=== PATIENT | male | born 1965 | race Two or more races ===

== ENCOUNTER 2021-12-12 12:27 | Day surgery (SDC) | payer OTHER ==
[2021-12-12 13:33] LABS: Basophils # (A) 0.1 k/uL (0-0.2); Basophils % (A) 1 %; Eosinophils # (A) 0.3 k/uL (0-0.7); Eosinophils % (A) 3 %; HCT 39.9 % (39.0-53.0); HGB 12.4 gm/dL (13.0-17.5); Lymphocytes # (A) 1.6 k/uL (1.0-4.8); Lymphocytes % (A) 16 %; MCH 27.7 pg (25.0-35.0); MCV 89.2 fL (80.0-100.0); Mean Platelet Volume 7.8; Monocytes # (A) 0.5 k/uL (0-1.0); Monocytes % (A) 5 %; Neutrophils # (A) 7.6 k/uL (1.3-7.7); Neutrophils % (A) 75 %; Platelet Count 454 k/uL (150-450); RBC 4.48 m/uL (4.30-5.90); RDW 14.3 % (11.5-15.5); WBC 10.2 k/uL (3.8-10.6)
[2021-12-12 13:36] VITALS: TEMP 98.3
[2021-12-12 13:36] LABS: ALT 21 U/L (4-49); AST 56 U/L (17-59); African American GFR (CKD) >90 (>60 ml/min/1.73 sqM); Albumin 2.2 g/dL (3.5-5.0); Alkaline Phosphatase 197 U/L (38-126); Anion Gap 0 mmol/L; Blood Urea Nitrogen 15 mg/dL (9-20); Carbon Dioxide 28 mmol/L (22-30); Chloride 101 mmol/L (98-107); Glucose 101 mg/dL (74-99); Non-African American GFR(CKD) >90 (>60 ml/min/1.73 sqM); Potassium 4.5 mmol/L (3.5-5.1); Sodium 129 mmol/L (137-145); Total Bilirubin 0.4 mg/dL (0.2-1.3); Total Protein 5.5 g/dL (6.3-8.2)
[2021-12-12 13:38] LABS: INR 1.1 (<1.2); Prothrombin Time 12.1 sec (9.0-12.0)
[2021-12-12] MEDS: ALBUMIN HUMAN 25% 50 ML in EMPTY BAG 1 BAG IVPB SCH ×4 (14:11→15:00)
[2021-12-12 15:06] VITALS: RESP 18
[2021-12-12 15:50] VITALS: PULSE 75
[2021-12-12 16:03] VITALS: BP 97/65
--- NOTE | 2021-12-12 16:07 | US ---
EXAMINATION TYPE: US paracentesis abd w/image DATE OF EXAM: 12/12/2021 COMPARISON: NONE HISTORY: Ascites. PROCEDURE: Maximal barrier technique was utilized. The skin overlying a suitable pocket of fluid was localized with ultrasound and the overlying skin was prepped and draped. Ultrasound was utilized with sterile technique. Lidocaine was used for local anesthesia and a skin jamila made with a scalpel. Catheter was advanced under direct ultrasound guidance into a suitable pocket of fluid and approximately 11.7 lite rs of ascites fluid were removed. Catheter was withdrawn and hemostasis achieved. There is no immed iate complication; the patient is discharged in stable condition. IMPRESSION: STATUS POST ULTRASOUND GUIDED PARACENTESIS FOR PALLIATION OF ASCITES. THIS PROCEDURE WA S PERFORMED BY THE UNDERSIGNED.
== END 2021-12-12 16:04 | disposition home or self-care (01) ==
LOC: RADPROMAIN 12:27
PROVIDERS: ATTEND Internal Medicine Gastroenterology
DX: K70.31 Alcoholic cirrhosis of liver with ascites (principal); F10.10 Alcohol abuse, uncomplicated; Y90.9 Presence of alcohol in blood, level not specified; R16.0 Hepatomegaly, not elsewhere classified; Z79.899 Other long term (current) drug therapy
CPT/HCPCS: 80053; 85025; 85610; 36415; 49083; P9047

== ENCOUNTER 2021-12-19 13:07 | Day surgery (SDC) | payer OTHER ==
[~2021-12-19 13:07] MED LIST: ALBUMIN HUMAN 25% 50 ML in EMPTY BAG 1 BAG IVPB SCH
[2021-12-19 13:50] LABS: Mean Platelet Volume 7.9; Platelet Count 355 k/uL (150-450)
[2021-12-19 13:59] LABS: INR 1.1 (<1.2); Prothrombin Time 11.4 sec (9.0-12.0)
[2021-12-19 14:05] LABS: African American GFR (CKD) >90 (>60 ml/min/1.73 sqM); Non-African American GFR(CKD) >90 (>60 ml/min/1.73 sqM)
[2021-12-19] MEDS: ALBUMIN HUMAN 25% 50 ML in EMPTY BAG 1 BAG IVPB SCH ×4 (14:41→15:43)
[2021-12-19 15:07] VITALS: RESP 16; TEMP 97.7
[2021-12-19 15:39] VITALS: BP 101/54; PULSE 62
--- NOTE | 2021-12-19 16:06 | US ---
Ultrasound-guided paracentesis. DATE OF EXAM: 12/19/2021 CLINICAL HISTORY: Ascites The procedure was discussed with the patient. The risks, complications, benefits, and alternatives we re discussed and any questions were answered. Informed consent was obtained. The patient was placed s upine on the ultrasound table and prepped and draped in the usual sterile fashion. All elements of maximal barrier technique were utilized. Under ultrasound guidance, access into the right lower quadrant was obtained, via the paracentesis catheter system and direct ultrasound guidanc e. Approximately 5.9 liters of straw-colored fluid was removed. The patient was stable throughout the pr ocedure and remained stable upon discharge from Department of Radiology. IMPRESSION: Successful paracentesis under ultrasound guidance.
== END 2021-12-19 15:40 | disposition home or self-care (01) ==
LOC: RADPROMAIN 13:07
PROVIDERS: ATTEND Internal Medicine Gastroenterology
DX: R18.8 Other ascites (principal)
CPT/HCPCS: 82565; 85049; 85610; 36415; 49083; P9047

== ENCOUNTER 2021-12-26 08:02 | Day surgery (SDC) | payer OTHER ==
[2021-12-26 08:34] LABS: Mean Platelet Volume 7.4; Platelet Count 358 k/uL (150-450)
[2021-12-26 08:40] LABS: INR 1.1 (<1.2); Prothrombin Time 11.8 sec (9.0-12.0)
[2021-12-26 08:41] VITALS: BP 98/65; PULSE 90; RESP 18; TEMP 97.8
[2021-12-26 08:43] LABS: African American GFR (CKD) >90 (>60 ml/min/1.73 sqM); Non-African American GFR(CKD) >90 (>60 ml/min/1.73 sqM)
--- NOTE | 2021-12-26 09:25 | US ---
Ultrasound-guided paracentesis. DATE OF EXAM: 12/26/2021 CLINICAL HISTORY: Ascites Preliminary imaging demonstrated only a very small amount of fluid. Procedure discussed with patient. Procedure was deferred. IMPRESSION: 1. Deferred paracentesis due to small amount of fluid.
[2021-12-26] MEDS: ALBUMIN HUMAN 25% 50 ML in EMPTY BAG 1 BAG IVPB SCH ×3 (12:00→12:02)
== END 2021-12-26 09:30 | disposition home or self-care (01) ==
LOC: RADPROMAIN 08:02
PROVIDERS: ATTEND Internal Medicine Gastroenterology
DX: R18.8 Other ascites (principal)
CPT/HCPCS: 36415; 76705; 82565; 85049; 85610

== ENCOUNTER 2022-01-09 12:43 | Day surgery (SDC) | payer OTHER ==
[2022-01-09 13:02] VITALS: BP 97/65; PULSE 85; RESP 16; TEMP 98.1
--- NOTE | 2022-01-09 15:59 | US ---
Ultrasound-guided paracentesis. DATE OF EXAM: 01/09/2022 CLINICAL HISTORY: Ascites The procedure was discussed with the patient. The risks, complications, benefits, and alternatives we re discussed and any questions were answered. Informed consent was obtained. The patient was placed s upine on the ultrasound table and prepped and draped in the usual sterile fashion. All elements of maximal barrier technique were utilized. Under ultrasound guidance, access into the right lower quadrant was obtained, via the paracentesis catheter system and direct ultrasound guidanc e. Approximately 9 liters of straw-colored fluid was removed. The patient was stable throughout the proc edure and remained stable upon discharge from Department of Radiology. IMPRESSION: Successful paracentesis under ultrasound guidance.
== END 2022-01-09 13:45 | disposition home or self-care (01) ==
LOC: RADPROMAIN 12:43
PROVIDERS: ATTEND Internal Medicine Gastroenterology
DX: R18.8 Other ascites (principal)
CPT/HCPCS: 49083

== ENCOUNTER 2022-03-13 07:45 | Inpatient (IN) | payer OTHER ==
[2022-05-18 13:05] LABS: Anisocytosis Slight; Basophils # (A) 0.1 k/uL (0-0.2); Basophils % (A) 1 %; Eosinophils # (A) 0.2 k/uL (0-0.7); Eosinophils % (A) 3 %; HCT 27.4 % (39.0-53.0); Hypochromasia Marked; Lymphocytes # (A) 1.5 k/uL (1.0-4.8); Lymphocytes % (A) 17 %; MCH 22.9 pg (25.0-35.0); MCHC 29.4 g/dL (31.0-37.0); Mean Platelet Volume 8.8; Microcytosis Slight; Monocytes # (A) 0.7 k/uL (0-1.0); Monocytes % (A) 8 %; Neutrophils # (A) 6.1 k/uL (1.3-7.7); Neutrophils % (A) 70 %; Partial Thromboplastin Time 25.7 sec (22.0-30.0); Platelet Count 329 k/uL (150-450); Prothrombin Time 10.3 sec (9.0-12.0); RBC 3.51 m/uL (4.30-5.90); RDW 17.3 % (11.5-15.5); WBC 8.7 k/uL (3.8-10.6)
[2022-05-18 13:13] LABS: Albumin 3.8 g/dL (3.5-5.0)
[2022-05-21] MEDS ORDERED: ACETAMINOPHEN TAB 500 MG TAB PO PRN (05:00)
[2022-05-21] MEDS ORDERED: metroNIDAZOLE-NS PMX 500 MG in SALINE 1 100ML.BAG IVPB PRN (05:00)
[2022-05-21] MEDS ORDERED: HEPARIN SODIUM,PORCINE/PF 5,000 UNIT/0.5 ML SYRINGE SQ PRN (05:00)
[2022-05-21] MEDS ORDERED: MIDAZOLAM 2 MG/2 ML VIAL IV PRN (06:15)
[2022-05-21] MEDS ORDERED: ONDANSETRON 4 MG/2 ML VIAL IVP ONE (06:15)
[2022-05-21] MEDS ORDERED: DEXAMETHASONE SOD PHOSPHATE 4 MG/ML 1 ML VIAL IV ONE (06:15)
[2022-05-21] MEDS ORDERED: SCOPOLAMINE 1 MG/72 HR PATCH TRANSDERM ONE (06:15)
[2022-05-21] MEDS ORDERED: HYDROmorphone 0.5 MG/0.5 ML SYRINGE IVP PRN (07:00)
[2022-05-21] MEDS: LACTATED RINGERS 1,000 ML IV SCH (09:17)
[2022-05-21] MEDS ORDERED: MIDAZOLAM 2 MG/2 ML VIAL IVP ONE (10:07)
[2022-05-21] MEDS ORDERED: NALOXONE 0.4 MG/ML 1 ML VIAL IV PRN (10:31)
--- NOTE | 2022-05-21 10:34 | P.ANPRN ---
Procedure Note - Anesthesia - Epidural/Spinal Epidural Continuous Time Out Performed: Yes Date of Procedure: 05/21/22 Procedure Start Time: 10:07 Procedure Stop Time: 10:14 Location of Patient: PreOp Indication: Requested by Surgeon Sedation Type: Sedate with meaningful contact maintained Preparation: Sterile Prep Position: Sitting Catheter: Indwelling Needle Guage: 18 Blood Aspirated: No Pain Paresthesia on Injection Noted: No Events: Uneventful and Well Tolerated
[2022-05-21] MEDS ORDERED: LACTATED RINGERS 1,000 ML IV ONE ×2 (11:10→13:23)
[2022-05-21] MEDS ORDERED: NEOSTIGMINE 1 MG/ML 10 ML VIAL ONE (11:34)
[2022-05-21] MEDS ORDERED: GLYCOPYRROLATE 0.2 MG/ML 2 ML VIAL ONE (11:34)
[2022-05-21] MEDS ORDERED: ROCURONIUM 10 MG/ML (5 ML VIAL) IV ONE (11:34)
[2022-05-21] MEDS ORDERED: ESMOLOL 100 MG/10 ML VIAL ONE (11:34)
[2022-05-21] MEDS ORDERED: MIDAZOLAM 2 MG/2 ML VIAL ONE (11:34)
[2022-05-21] MEDS ORDERED: SUCCINYLCHOLINE CHLORIDE 200 MG/10 ML VIAL IV ONE (11:34)
[2022-05-21] MEDS ORDERED: PROPOFOL 10 MG/ML 20 ML VIAL IV ONE (11:34)
[2022-05-21] MEDS ORDERED: LIDOCAINE 2% INJ 20 MG/ML (2 ML VIAL) ONE (11:34)
[2022-05-21] MEDS ORDERED: fentaNYL (PF) 50 MCG/ML 2 ML AMP ONE (11:34)
[2022-05-21] MEDS: ROPIVACAINE 250 MG, HYDROMORPHONE (PF) 5 MG in SODIUM CHLORIDE 0.9% 200 ML EPIDURAL PRN ×2 (13:33→14:09)
[2022-05-21] MEDS ORDERED: BENZOCAINE/MENTHOL LOZENG 1 EACH LOZENGE MUCOUS MEM PRN (14:01)
[2022-05-21] MEDS ORDERED: ONDANSETRON 4 MG/2 ML VIAL IVP PRN (14:01)
[2022-05-21] MEDS ORDERED: METOCLOPRAMIDE 5 MG/ML 2 ML VIAL IVP PRN (14:01)
[2022-05-21 14:48] LABS: Anisocytosis Slight; Basophils % (A) 0 %; Eosinophils # (A) 0.1 k/uL (0-0.7); Eosinophils % (A) 1 %; HCT 27.9 % (39.0-53.0); HGB 8.4 gm/dL (13.0-17.5); Hypochromasia Marked; Lymphocytes # (A) 0.5 k/uL (1.0-4.8); Lymphocytes % (A) 6 %; MCHC 30.2 g/dL (31.0-37.0); MCV 79.4 fL (80.0-100.0); Mean Platelet Volume 7.7; Microcytosis Slight; Monocytes # (A) 0.2 k/uL (0-1.0); Monocytes % (A) 2 %; Neutrophils # (A) 7.2 k/uL (1.3-7.7); Neutrophils % (A) 90 %; Platelet Count 343 k/uL (150-450); Poikilocytosis Slight; RBC 3.51 m/uL (4.30-5.90)
[2022-05-21 15:01] LABS: African American GFR (CKD) >90 (>60 ml/min/1.73 sqM); Anion Gap 7 mmol/L; Blood Urea Nitrogen 14 mg/dL (9-20); Calcium 8.3 mg/dL (8.4-10.2); Carbon Dioxide 20 mmol/L (22-30); Chloride 108 mmol/L (98-107); Glucose 122 mg/dL (74-99); Non-African American GFR(CKD) 87 (>60 ml/min/1.73 sqM); Potassium 5.6 mmol/L (3.5-5.1); Sodium 135 mmol/L (137-145)
[2022-05-21] MEDS: D5-0.45% NACL WITH KCL 20MEQ/L 1,000 ML IV SCH (16:38)
[2022-05-21] MEDS: HEPARIN SODIUM,PORCINE/PF 5,000 UNIT/0.5 ML SYRINGE SQ SCH ×2 (17:58→23:29)
[2022-05-21] MEDS: FAMOTIDINE 20 MG/2 ML VIAL IV SCH (20:51)
[2022-05-22 08:37] LABS: Anisocytosis Slight; HCT 22.2 % (39.0-53.0); Hypochromasia Marked; MCH 23.9 pg (25.0-35.0); MCHC 30.4 g/dL (31.0-37.0); MCV 78.5 fL (80.0-100.0); Mean Platelet Volume 7.8; Microcytosis Slight; Platelet Count 268 k/uL (150-450); Poikilocytosis Slight; RBC 2.82 m/uL (4.30-5.90); WBC 10.6 k/uL (3.8-10.6)
[2022-05-22] MEDS: LACTATED RINGERS 1,000 ML IV SCH (08:44)
[2022-05-22 08:47] LABS: HGB 6.7 gm/dL (13.0-17.5)
[2022-05-22] MEDS: ALVIMOPAN 12 MG CAPSULE PO SCH ×2 (08:50→20:31)
[2022-05-22] MEDS: HEPARIN SODIUM,PORCINE/PF 5,000 UNIT/0.5 ML SYRINGE SQ SCH ×2 (08:50→15:25)
[2022-05-22] MEDS: FAMOTIDINE 20 MG/2 ML VIAL IV SCH ×2 (08:55→20:31)
[2022-05-22] MEDS: DEXTROSE 5%-0.45% NACL 1,000 ML IV SCH ×3 (08:56→20:31)
[2022-05-22 08:58] LABS: African American GFR (CKD) 77 (>60 ml/min/1.73 sqM); Anion Gap 2 mmol/L; Blood Urea Nitrogen 17 mg/dL (9-20); Carbon Dioxide 25 mmol/L (22-30); Chloride 104 mmol/L (98-107); Glucose 98 mg/dL (74-99); Non-African American GFR(CKD) 67 (>60 ml/min/1.73 sqM); Sodium 131 mmol/L (137-145)
[2022-05-22 09:09] LABS: Potassium 6.2 mmol/L (3.5-5.1)
--- NOTE | 2022-05-22 09:39 | P.PN ---
Progress Note - Text Progress Note Date: 05/22/22 Patient evaluated at 656 am. He is POD #1 subtotal colectomy with an epidural infusing for post-operative pain management. Patient has not yet been out of bed but states a VAS of 1-2/10 which increases with reaching for bedside table. Epidural infusing, site clean/dry, no complaint of back pain and patient is afebrile. Will follow up as indicated.
[2022-05-22] MEDS ORDERED: INSULIN REGULAR 100 UNIT/ML VIAL (IM/SQ) SQ ONE (11:32)
[2022-05-22] MEDS ORDERED: DEXTROSE 50% SYRINGE 50 ML IVP STA (11:33)
[2022-05-22] MEDS ORDERED: INSULIN REGULAR 100 UNIT/ML VIAL (IV) IV ONE (11:38)
[2022-05-22] MEDS: D5-0.45% NACL WITH KCL 20MEQ/L 1,000 ML IV SCH (11:42)
--- NOTE | 2022-05-22 14:29 | P.PN ---
Subjective Progress Note Date: 05/22/22 CHIEF COMPLAINT: Colon polyps HISTORY OF PRESENT ILLNESS: Patient is postop day #1 status post subtotal c olectomy, partial omentectomy, small bowel resection and excision of Meckel's. Patient has epidural for pain. Pain is controlled. Denies any nausea or vomiting. Denies any bowel activity. Hemoglobin did drop from 8.4-6.7. Unit of blood has been ordered. He did receive a unit of blood postoperatively for hemoglobin of 8. Patient has had hyperkalemia potassium 5.6. Afebrile. WBC 10.6 H36.7 plan is to 68 sounds 1 and potassium 6.2 creatinine 1.20 Patient seen and examined with Dr. dias PHYSICAL EXAM: VITAL SIGNS: Reviewed. GENERAL: Well-developed in no acute distress. HEENT: No sclera icterus. Extraocular movements grossly intact. Moist buccal mucosa. Head is atraumatic, normocephalic. ABDOMEN: Soft. Nondistended. Tenderness at incision site. Prevana wound vac dressing in place NEUROLOGIC: Alert and oriented. Cranial nerves II through XII grossly intact. ASSESSMENT: 1. Colon polyps status post subtotal colectomy, partial omentectomy, small bowel resection and excision of Meckel's. 2. Hyperkalemia 3. Anemia PLAN: -1 unit of packed red blood cells ordered for hemoglobin of 6.7 -Insulin and glucose ordered to correct the hyperkalemia -Continue epidural for pain control -Continue incentive spirometer -Encouraged patient to increase activity level -Repeat labs in a.m. -GI prophylaxis Pepcid and DVT prophylaxis subcu heparin Physician Fifth Hand note has been reviewed by physician. Signing provider agrees with the documented findings, assessment, and plan of care. Objective - Vital Signs Vital signs: Vital Signs Temp 98.3 F 05/22/22 14:07 Pulse 87 05/22/22 14:07 Resp 17 05/22/22 14:07 BP 111/65 05/22/22 14:07 Pulse Ox 93 L 05/22/22 14:07 FiO2 Intake & Output 05/21/22 05/22/22 05/22/22 18:59 06:59 18:59 Intake Total 3609 0 Output Total 850 400 Balance 2759 -400 Weight 84.7 kg Intake: IV 3299 Oral 0 Blood Product 310 0 Unit 0 Rc As-1 Unit 310 [id number] Output: Urine 600 400 Estimated Blood Loss 250 Other: Voiding Method Indwelling Catheter Indwelling Catheter Indwelling Catheter - Labs CBC & Chem 7: 05/22/22 08:06 05/22/22 08:06 Labs: Abnormal Lab Results - Last 24 Hours (Table) 05/18/22 05/21/22 05/21/22 Range/Units 11:48 14:21 14:21 RBC 3.51 L (4.30-5.90) m/uL Hgb 8.4 L (13.0-17.5) gm/dL Hct 27.9 L (39.0-53.0) % MCV 79.4 L (80.0-100.0) fL MCH 24.0 L (25.0-35.0) pg MCHC 30.2 L (31.0-37.0) g/dL RDW 17.0 H (11.5-15.5) % Lymphocytes # 0.5 L (1.0-4.8) k/uL Sodium 135 L (137-145) mmol/L Potassium 5.6 H (3.5-5.1) mmol/L Chloride 108 H (98-107) mmol/L Carbon Dioxide 20 L (22-30) mmol/L Glucose 122 H (74-99) mg/dL Calcium 8.3 L (8.4-10.2) mg/dL Crossmatch See Detail 05/22/22 05/22/22 Range/Units 08:06 08:06 RBC 2.82 L (4.30-5.90) m/uL Hgb 6.7 L* D (13.0-17.5) gm/dL Hct 22.2 L (39.0-53.0) % MCV 78.5 L (80.0-100.0) fL MCH 23.9 L (25.0-35.0) pg MCHC 30.4 L (31.0-37.0) g/dL RDW 17.0 H (11.5-15.5) % Lymphocytes # (1.0-4.8) k/uL Sodium 131 L (137-145) mmol/L Potassium 6.2 H* (3.5-5.1) mmol/L Chloride (98-107) mmol/L Carbon Dioxide (22-30) mmol/L Glucose (74-99) mg/dL Calcium 8.0 L (8.4-10.2) mg/dL Crossmatch
[2022-05-22] MEDS: ROPIVACAINE 250 MG, HYDROMORPHONE (PF) 5 MG in SODIUM CHLORIDE 0.9% 200 ML EPIDURAL PRN (14:57)
[2022-05-23] MEDS: HEPARIN SODIUM,PORCINE/PF 5,000 UNIT/0.5 ML SYRINGE SQ SCH ×3 (00:06→17:24)
[2022-05-23] MEDS: LACTATED RINGERS 1,000 ML IV SCH (00:09)
[2022-05-23] MEDS: DEXTROSE 5%-0.45% NACL 1,000 ML IV SCH ×2 (05:31→14:42)
--- NOTE | 2022-05-23 07:04 | P.PN ---
Progress Note - Text Progress Note Date: 05/23/22 Postoperative day #2 status post subtotal colectomy epidural catheter placed for postoperative analgesia, patient doing well epidural site okay, patient currently on combination of epidural infusion solution of Ropivacaine 0.0625% and Dilaudid 20 g per mL the infusion rate at 8 ml per hour , patient had no motor deficit epidural site okay , vital signs stable ,VAS 2-3 /10 , Assessment and plan= post operative day #2 patient doing well ,pain well controlled , there is no anesthesia related complications
[2022-05-23] MEDS: ALVIMOPAN 12 MG CAPSULE PO SCH ×2 (09:36→21:30)
[2022-05-23] MEDS: FAMOTIDINE 20 MG/2 ML VIAL IV SCH ×2 (09:36→21:30)
[2022-05-23 10:17] LABS: HCT 26.9 % (39.6-50.0); HGB 7.7 g/dL (13.0-17.0); MCH 22.9 pg (27.0-32.0); MCHC 28.6 g/dL (32.0-37.0); MCV 80.1 fL (80.0-97.0); Mean Platelet Volume 10.9 fL (9.5-12.2); NRBC Per 100 WBC 0.1 /100 WBCS (0.0-0.0); Platelet Count 353 X 10*3/uL (140-440); RBC 3.36 X 10*6/uL (4.40-5.60); RDW 18.1 % (11.5-14.5); WBC 15.84 X 10*3/uL (4.50-10.00)
[2022-05-23 10:46] LABS: African American GFR (CKD) 77.3 (60.0-200.0); Anion Gap 9.1 mmol/L (10.00-18.00); BUN/Creat Ratio 10.5 Ratio (12.00-20.00); Blood Urea Nitrogen 12.6 mg/dL (9.0-27.0); Carbon Dioxide 24.9 mmol/L (20.0-27.5); Non-African American GFR(CKD) 66.7 (60.0-200.0)
[2022-05-23] MEDS: FUROSEMIDE 40 MG TAB PO SCH ×2 (12:13→21:31)
[2022-05-23] MEDS: SPIRONOLACTONE 25 MG TAB PO SCH ×2 (12:13→21:31)
--- NOTE | 2022-05-23 12:29 | P.PN ---
Subjective Progress Note Date: 05/23/22 CHIEF COMPLAINT: Colon polyps HISTORY OF PRESENT ILLNESS: Patient is postop day #2 status post subtotal c olectomy, partial omentectomy, small bowel resection and excision of Meckel's. Patient has epidural for pain. Pain is controlled. Patient did have one episode of vomiting. Patient is requesting his water pills. He has a known history of liver cirrhosis. He feels his abdomen is more distended. Denies any bowel movement or flatus. Afebrile. Heart rate 101 blood pressure 113/65 room air and 90% WBC is up 15.84. Hemoglobin 6.7 up to 7.7 after 1 unit of blood and platelets 353 sodium is 127 potassium improved from 6.2-5 creatinine 1.2 Patient seen and examined with Dr. dias PHYSICAL EXAM: VITAL SIGNS: Reviewed. GENERAL: Well-developed in no acute distress. HEENT: No sclera icterus. Extraocular movements grossly intact. Moist buccal mucosa. Head is atraumatic, normocephalic. ABDOMEN: Soft. Distended Tenderness at incision site. Prevana wound vac dressing in place NEUROLOGIC: Alert and oriented. Cranial nerves II through XII grossly intact. ASSESSMENT: 1. Colon polyps status post subtotal colectomy, partial omentectomy, small bowel resection and excision of Meckel's. 2. Hyperkalemia improved 3. Anemia 4. Hyponatremia PLAN: -History of liver cirrhosis we'll resume patient's Lasix and Aldactone -Medical service has been consulted -Continue clear liquid diet -Continue epidural for pain management -Continue incentive spirometer -Encouraged patient to increase activity level -Repeat labs in a.m. -GI prophylaxis Pepcid and DVT prophylaxis subcu heparin Physician Fibre Composite Technician note has been reviewed by physician. Signing provider agrees with the documented findings, assessment, and plan of care. Objective - Vital Signs Vital signs: Vital Signs Temp 97.3 F L 05/23/22 07:46 Pulse 101 H 05/23/22 07:46 Resp 16 05/23/22 07:46 BP 113/65 05/23/22 07:46 Pulse Ox 90 L 05/23/22 07:46 FiO2 Intake & Output 05/22/22 05/23/22 05/23/22 18:59 06:59 18:59 Intake Total 310 1500 Output Total 1200 750 Balance -890 750 Intake: Intake, IV Titration 1500 Amount Dextrose 5%-0.45% NaCl 1, 1500 000 ml @ 125 mls/hr IV . Q8H [facility] Rx#:[id number] Blood Product 310 Rc As-1 Unit 310 [id number] Output: Urine 1200 750 Other: Voiding Method Indwelling Catheter Indwelling Catheter Indwelling Catheter - Labs CBC & Chem 7: 05/23/22 07:21 05/23/22 07:21 Labs: Abnormal Lab Results - Last 24 Hours (Table) 05/18/22 05/23/22 05/23/22 Range/Units 11:48 07:21 07:21 WBC 15.84 H (4.50-10.00) X 10*3/uL RBC 3.36 L (4.40-5.60) X 10*6/uL Hgb 7.7 L (13.0-17.0) g/dL Hct 26.9 L (39.6-50.0) % MCH 22.9 L (27.0-32.0) pg MCHC 28.6 L (32.0-37.0) g/dL RDW 18.1 H (11.5-14.5) % Absolute Nucleated RBC 0.02 H (0.00-0.00) X 10*3/uL NRBC/100 WBC Diff 0.1 H (0.0-0.0) /100 WBCS Sodium 127 L (135-145) mmol/L Chloride 93 L (96-109) mmol/L Anion Gap 9.10 L (10.00-18.00) mmol/L BUN/Creatinine Ratio 10.50 L (12.00-20.00) Ratio Glucose 153 H (70-110) mg/dL Crossmatch See Detail
[2022-05-23] MEDS: ROPIVACAINE 250 MG, HYDROMORPHONE (PF) 5 MG in SODIUM CHLORIDE 0.9% 200 ML EPIDURAL PRN (17:21)
[2022-05-24] MEDS: HEPARIN SODIUM,PORCINE/PF 5,000 UNIT/0.5 ML SYRINGE SQ SCH ×3 (00:08→14:08)
--- NOTE | 2022-05-24 01:46 | PN ---
PROGRESS NOTE DATE OF SERVICE: 05/22/2022 CHIEF COMPLAINT: Colonic polyps, history of cirrhosis. HISTORY OF PRESENT ILLNESS: This gentleman is doing well and is stable. He is awake and alert. PHYSICAL EXAMINATION: CHEST: Clear. CARDIAC: Normal. ABDOMEN: Soft and slightly protuberant. IMPRESSION: 1. Status post right hemicolectomy. 2. History of alcoholism. 3. Cirrhosis. PLAN: No change in medication or program. He is doing well. MMODL / IJN: [id number] /
--- NOTE | 2022-05-24 01:46 | PN ---
PROGRESS NOTE DATE OF SERVICE: 05/22/2022 CHIEF COMPLAINT: Postop right hemicolectomy. HISTORY OF PRESENT ILLNESS: This gentleman is doing well. He has had no nausea and pains are under good control. PHYSICAL EXAMINATION: CHEST: Clear. CARDIAC: Normal. ABDOMEN: Protuberant. Bowel sounds are heard. EXTREMITIES: Normal. IMPRESSION: 1. Status post right hemicolectomy. 2. Alcoholism and cirrhosis. PLAN: Continue to follow with Surgery. He is doing well. Vital signs are normal. MMODL / IJN: [id number] /
--- NOTE | 2022-05-24 02:54 | CONS ---
CONSULTATION CHIEF COMPLAINT: Status post hemicolectomy. HISTORY OF PRESENT ILLNESS: This gentleman apparently is brought in for procedure after he is identified as having colonic polyps that could not be removed by colonoscopy. REVIEW OF SYSTEMS: He denies any headaches, chest pain, shortness of breath, cough, hemoptysis, fever, chills, hematemesis, melena, hematochezia, jaundice, hepatitis, renal failure, incontinence, nocturia, diabetes, etc. Past medical history, family history, personal and social histories reveal he is not allergic to any medication. He takes Lasix 40 mg twice a day, spironolactone 100 mg twice a day, iron, and potassium. He has not had any prior surgery. He used to smoke, but does not any longer. He is a recovering alcoholic. PHYSICAL EXAMINATION: VITAL SIGNS: Blood pressure 118/78, pulse of 89, respirations 16. He is afebrile. GENERAL: He appeared to be well developed, well nourished, in no acute distress. HEAD, EARS, EYES, NOSE, MOUTH AND THROAT: Normal. NECK: Neck veins are not distended. CHEST: Clear. CARDIAC: Demonstrated sinus rhythm and no murmurs or extra sounds. ABDOMEN: Soft. EXTREMITIES: Normal. NEUROLOGICAL: He is intact. IMPRESSION: 1. Colonic polyps. 2. History of alcoholism. 3. Cirrhosis. RECOMMENDATIONS: None. MMODL / IJN: [id number] /
[2022-05-24 07:34] LABS: Anisocytosis Slight; Basophils % (A) 0 %; Eosinophils # (A) 0.1 k/uL (0-0.7); Eosinophils % (A) 1 %; HCT 25.4 % (39.0-53.0); HGB 7.8 gm/dL (13.0-17.5); Hypochromasia Moderate; Lymphocytes # (A) 1.1 k/uL (1.0-4.8); Lymphocytes % (A) 11 %; MCH 23.7 pg (25.0-35.0); MCHC 30.7 g/dL (31.0-37.0); Mean Platelet Volume 8.6; Microcytosis Slight; Monocytes # (A) 0.6 k/uL (0-1.0); Monocytes % (A) 5 %; Neutrophils # (A) 8.5 k/uL (1.3-7.7); Neutrophils % (A) 81 %; Platelet Count 276 k/uL (150-450); Poikilocytosis Slight; RDW 18.6 % (11.5-15.5); WBC 10.5 k/uL (3.8-10.6)
[2022-05-24 07:50] LABS: African American GFR (CKD) >90 (>60 ml/min/1.73 sqM); Anion Gap 2 mmol/L; Blood Urea Nitrogen 7 mg/dL (9-20); Calcium 8.2 mg/dL (8.4-10.2); Carbon Dioxide 28 mmol/L (22-30); Chloride 99 mmol/L (98-107); Glucose 117 mg/dL (74-99); Non-African American GFR(CKD) 88 (>60 ml/min/1.73 sqM); Potassium 4.6 mmol/L (3.5-5.1); Sodium 129 mmol/L (137-145)
--- NOTE | 2022-05-24 08:30 | P.PN ---
Progress Note - Text Postop day 3 from exploratory laparotomy, epidural catheter inserted for postop pain control. Epidural solution: Bupivacaine 0.625% with Dilaudid 20 mcgs/ml running at 8 mL an hour. Patient pain is well controlled with visual analog score of 3/10. No nausea vomiting, itching, weakness or numbness in the legs or headache reported by the patient. Plan: To d/c epidural today.
[2022-05-24] MEDS: DEXTROSE 5%-0.45% NACL 1,000 ML IV SCH ×4 (08:34→15:48)
[2022-05-24] MEDS: SPIRONOLACTONE 25 MG TAB PO SCH ×2 (08:39→22:13)
[2022-05-24] MEDS: ALVIMOPAN 12 MG CAPSULE PO SCH ×2 (08:40→22:09)
[2022-05-24] MEDS: FUROSEMIDE 40 MG TAB PO SCH ×2 (08:40→22:09)
[2022-05-24] MEDS: FAMOTIDINE 20 MG/2 ML VIAL IV SCH ×2 (08:40→22:09)
[2022-05-24] MEDS ORDERED: HYDROmorphone 1 MG/ML 1 ML SYRINGE IVP PRN (10:21)
[2022-05-24 13:14] LABS: ALT 12 U/L (4-49); AST 15 U/L (17-59); African American GFR (CKD) >90 (>60 ml/min/1.73 sqM); Albumin 2.9 g/dL (3.5-5.0); Albumin/Globulin Ratio 1.2; Alkaline Phosphatase 79 U/L (38-126); Anion Gap 4 mmol/L; Blood Urea Nitrogen 7 mg/dL (9-20); Calcium 8.3 mg/dL (8.4-10.2); Carbon Dioxide 27 mmol/L (22-30); Chloride 98 mmol/L (98-107); Globulin 2.5 g/dL; Glucose 111 mg/dL (74-99); Non-African American GFR(CKD) >90 (>60 ml/min/1.73 sqM); Potassium 4.5 mmol/L (3.5-5.1); Sodium 129 mmol/L (137-145); Total Bilirubin 0.3 mg/dL (0.2-1.3); Total Protein 5.4 g/dL (6.3-8.2)
--- NOTE | 2022-05-24 14:34 | P.PN ---
Subjective Progress Note Date: 05/24/22 CHIEF COMPLAINT: Colon polyps HISTORY OF PRESENT ILLNESS: Patient is postop day #3 status post subtotal c olectomy, partial omentectomy, small bowel resection and excision of Meckel's. Patient's pain is controlled. He denies any nausea vomiting. He is having flatus. No bowel movement. Afebrile. White count has come down from 15-10 hemoglobin stable at 7.8 potassium improved at 4.6 sodium 129 Patient seen and examined with Dr. dias PHYSICAL EXAM: VITAL SIGNS: Reviewed. GENERAL: Well-developed in no acute distress. HEENT: No sclera icterus. Extraocular movements grossly intact. Moist buccal mucosa. Head is atraumatic, normocephalic. ABDOMEN: Soft. Distended Tenderness at incision site. Prevana wound vac dressing in place NEUROLOGIC: Alert and oriented. Cranial nerves II through XII grossly intact. ASSESSMENT: 1. Colon polyps status post subtotal colectomy, partial omentectomy, small bowel resection and excision of Meckel's. 2. Hyperkalemia improved 3. Anemia 4. Hyponatremia 5. History of liver cirrhosis PLAN: -Epidural Lynch catheter scheduled to be discontinued today -IV Dilaudid and Rhodell added for pain control -Continue clear liquid diet -Continue incentive spirometer -Encouraged patient to increase activity level -Check labs in a.m. -GI prophylaxis Pepcid and DVT prophylaxis subcu heparin Physician Prosthetic Assistant note has been reviewed by physician. Signing provider agrees with the documented findings, assessment, and plan of care. Objective - Vital Signs Vital signs: Vital Signs Temp 98.0 F 05/24/22 13:50 Pulse 78 05/24/22 13:50 Resp 16 05/24/22 13:50 BP 130/73 05/24/22 13:50 Pulse Ox 96 05/24/22 13:50 FiO2 Intake & Output 05/23/22 05/24/22 05/24/22 18:59 06:59 18:59 Intake Total 211.2 Output Total 1999 240 1500 Balance -1788.8 -2400 -1500 Intake: Intake, IV Titration 211.2 Amount Ropivacaine 250 mg 211.2 Hydromorphone (Pf) 5 mg In Sodium Chloride 0.9% 200 ml @ Per Protocol EPIDURAL .Q0M PRN Rx#: [id number] Output: Urine 2000 2400 1500 Other: Voiding Method Indwelling Catheter Indwelling Catheter Indwelling Catheter - Labs CBC & Chem 7: 05/24/22 07:19 05/24/22 12:22 Labs: Abnormal Lab Results - Last 24 Hours (Table) 05/24/22 05/24/22 05/24/22 Range/Units 07:19 07:19 12:22 RBC 3.30 L (4.30-5.90) m/uL Hgb 7.8 L (13.0-17.5) gm/dL Hct 25.4 L (39.0-53.0) % MCV 77.0 L (80.0-100.0) fL MCH 23.7 L (25.0-35.0) pg MCHC 30.7 L (31.0-37.0) g/dL RDW 18.6 H (11.5-15.5) % Neutrophils # 8.5 H (1.3-7.7) k/uL Sodium 129 L 129 L (137-145) mmol/L BUN 7 L 7 L (9-20) mg/dL Glucose 117 H 111 H (74-99) mg/dL Calcium 8.2 L 8.3 L (8.4-10.2) mg/dL AST 15 L (17-59) U/L Total Protein 5.4 L (6.3-8.2) g/dL Albumin 2.9 L (3.5-5.0) g/dL
[2022-05-24] MEDS: HYDROcodone/APAP 5-325MG 1 EACH TAB PO PRN (15:53)
--- NOTE | 2022-05-24 18:45 | CDI ---
Documentation Clarification Form Date: 05/23/2022 4:01:00 PM From: Kelly Hayes RN, CCDS Admit Date: 05/21/2022 8:59:00 AM Patient Name: Latrell Mora Visit Number: [id number] Discharge Date: ATTENTION: The Clinical Documentation Specialists (CDI) and [facility] Coding Staff appreciate your assistance in clarifying documentation. Please respond to the clarification below the line at the bottom and electronically sign. The CDI & [facility] Coding staff will review the response and follow-up if needed. Please note: Queries are made part of the Legal Health Record. If you have any questions, please contact the author of this message via ITS. Dr. Jose Culvre Anemia is documented in the progress notes starting on 05/22/22 and patient had small bowel resection and excision of Meckel's, subtotal colectomy, partial omentectomy. Additional clarification is requested regarding the type of anemia is requested. Patients Admitting Diagnosis: Colon polyps History/Risk Factors: colon polyps Clinical Indicators: 56-year-old male post subtotal colectomy, partial omentectomy, small bowel resection and excision of Meckel's. Hemoglobin drop from 8.4 to 6.7. Unit of blood ordered. He did receive a unit of blood postoperatively for hemoglobin of 8. Treatment: Monitor CBC Daily per orders Transfuse PRBC Total =2 units Please clarify the type and acuity of anemia: [ ] Acute blood loss anemia [ ] Acute on chronic blood loss anemia [ ] Unable to determine [xx ] Other, please specify chronic anemia due to colon polyps____ (Template Last Revised: June 2020) MTDD
[2022-05-25] MEDS: HEPARIN SODIUM,PORCINE/PF 5,000 UNIT/0.5 ML SYRINGE SQ SCH ×4 (01:13→16:59)
[2022-05-25 06:51] LABS: Anisocytosis Slight; HCT 29.8 % (39.0-53.0); HGB 9.1 gm/dL (13.0-17.5); Hypochromasia Moderate; MCH 23.6 pg (25.0-35.0); MCHC 30.6 g/dL (31.0-37.0); MCV 76.9 fL (80.0-100.0); Mean Platelet Volume 7.4; Microcytosis Slight; Platelet Count 367 k/uL (150-450); Poikilocytosis Slight; RBC 3.87 m/uL (4.30-5.90); RDW 19.5 % (11.5-15.5); WBC 12.2 k/uL (3.8-10.6)
[2022-05-25 07:01] LABS: African American GFR (CKD) 85 (>60 ml/min/1.73 sqM); Anion Gap 11 mmol/L; Blood Urea Nitrogen 11 mg/dL (9-20); Calcium 8.8 mg/dL (8.4-10.2); Carbon Dioxide 25 mmol/L (22-30); Chloride 94 mmol/L (98-107); Glucose 112 mg/dL (74-99); Non-African American GFR(CKD) 74 (>60 ml/min/1.73 sqM); Potassium 4.7 mmol/L (3.5-5.1); Sodium 130 mmol/L (137-145)
[2022-05-25] MEDS: FAMOTIDINE 20 MG/2 ML VIAL IV SCH ×2 (09:30→22:44)
[2022-05-25] MEDS: DEXTROSE 5%-0.45% NACL 1,000 ML IV SCH (09:32)
[2022-05-25] MEDS: ALVIMOPAN 12 MG CAPSULE PO SCH ×2 (09:33→10:47)
[2022-05-25] MEDS: FUROSEMIDE 40 MG TAB PO SCH ×2 (10:47→22:34)
[2022-05-25] MEDS: SPIRONOLACTONE 25 MG TAB PO SCH ×2 (10:47→22:34)
--- NOTE | 2022-05-25 14:49 | P.PN ---
Subjective Progress Note Date: 05/25/22 CHIEF COMPLAINT: Colon polyps HISTORY OF PRESENT ILLNESS: Patient is postop day #4 status post subtotal c olectomy, partial omentectomy, small bowel resection and excision of Meckel's. Patient's pain is controlled. He is having flatus and loose bowel movements. Lynch catheter and epidural discontinued yesterday. Urinating without difficulty. Patient complains of not sleeping well last night. Afebrile. WBC is 12.2 Hgb is up from 7.8-9.1 platelets are 367 sodium is 1:30 potassium is 4.7 creatinine is 1.1 patient evaluated a PT OT. They're recommending home with home care. Patient seen and examined with Dr. dias PHYSICAL EXAM: VITAL SIGNS: Reviewed. GENERAL: Well-developed in no acute distress. HEENT: No sclera icterus. Extraocular movements grossly intact. Moist buccal mucosa. Head is atraumatic, normocephalic. ABDOMEN: Soft. Mildly distended. Mild tenderness at incision site. Prevena dressing in place NEUROLOGIC: Alert and oriented. Cranial nerves II through XII grossly intact. ASSESSMENT: 1. Colon polyps status post subtotal colectomy, partial omentectomy, small b owel resection and excision of Meckel's. 2. Hyperkalemia improved 3. Anemia 4. Hyponatremia 5. History of liver cirrhosis PLAN: -Continue pain management -Advance diet as tolerated -Discontinue IV fluids -Consult PT OT -Continue incentive spirometer -Encouraged patient to increase activity level -Check labs in a.m. -GI prophylaxis Pepcid and DVT prophylaxis subcu heparin Physician Parking Lot Spotter note has been reviewed by physician. Signing provider agrees with the documented findings, assessment, and plan of care. Objective - Vital Signs Vital signs: Vital Signs Temp 97.9 F 05/25/22 07:30 Pulse 89 05/25/22 07:30 Resp 19 05/25/22 07:30 BP 118/79 05/25/22 07:30 Pulse Ox 98 05/25/22 07:42 FiO2 Intake & Output 05/24/22 05/25/22 05/25/22 18:59 06:59 18:59 Output Total 2300 2 Balance -2300 -2 Output: Urine 2300 Urine/Stool Mix 2 Other: Voiding Method Indwelling Catheter Indwelling Catheter Urinal # Voids 3 # Bowel Movements 1 - Labs CBC & Chem 7: 05/25/22 06:02 05/25/22 06:02 Labs: Abnormal Lab Results - Last 24 Hours (Table) 05/25/22 05/25/22 Range/Units 06:02 06:02 WBC 12.2 H (3.8-10.6) k/uL RBC 3.87 L (4.30-5.90) m/uL Hgb 9.1 L (13.0-17.5) gm/dL Hct 29.8 L (39.0-53.0) % MCV 76.9 L (80.0-100.0) fL MCH 23.6 L (25.0-35.0) pg MCHC 30.6 L (31.0-37.0) g/dL RDW 19.5 H (11.5-15.5) % Sodium 130 L (137-145) mmol/L Chloride 94 L (98-107) mmol/L Glucose 112 H (74-99) mg/dL
[2022-05-25] MEDS: SIMETHICONE 40 MG/0.6 ML DROPS 2,000 MG/30 ML BOTTLE PO SCH ×3 (15:11→22:34)
[2022-05-25] MEDS: HYDROcodone/APAP 5-325MG 1 EACH TAB PO PRN ×2 (17:03→22:43)
[2022-05-26] MEDS: HEPARIN SODIUM,PORCINE/PF 5,000 UNIT/0.5 ML SYRINGE SQ SCH ×4 (00:15→23:46)
[2022-05-26] MEDS: FUROSEMIDE 40 MG TAB PO SCH ×3 (00:24→12:17)
[2022-05-26] MEDS: SPIRONOLACTONE 25 MG TAB PO SCH ×3 (00:24→20:08)
[2022-05-26 07:33] LABS: African American GFR (CKD) 42 (>60 ml/min/1.73 sqM); Anion Gap 16 mmol/L; Blood Urea Nitrogen 26 mg/dL (9-20); Carbon Dioxide 19 mmol/L (22-30); Chloride 95 mmol/L (98-107); Glucose 119 mg/dL (74-99); Non-African American GFR(CKD) 36 (>60 ml/min/1.73 sqM); Potassium 4.9 mmol/L (3.5-5.1); Sodium 130 mmol/L (137-145)
[2022-05-26 07:35] LABS: Calcium 9.1 mg/dL (8.4-10.2)
[2022-05-26 07:38] LABS: Anisocytosis Slight; Basophils % (A) 0 %; Eosinophils % (A) 0 %; HGB 10.3 gm/dL (13.0-17.5); Hypochromasia Moderate; Lymphocytes # (A) 0.9 k/uL (1.0-4.8); Lymphocytes % (A) 6 %; MCH 23.8 pg (25.0-35.0); MCHC 31.1 g/dL (31.0-37.0); MCV 76.6 fL (80.0-100.0); Mean Platelet Volume 8.2; Microcytosis Moderate; Monocytes % (A) 6 %; Neutrophils # (A) 13.6 k/uL (1.3-7.7); Neutrophils % (A) 86 %; Platelet Count 472 k/uL (150-450); Poikilocytosis Slight; RBC 4.31 m/uL (4.30-5.90); RDW 19.3 % (11.5-15.5); WBC 15.8 k/uL (3.8-10.6)
[2022-05-26] MEDS: SIMETHICONE 40 MG/0.6 ML DROPS 2,000 MG/30 ML BOTTLE PO SCH ×4 (08:32→21:32)
[2022-05-26] MEDS: HYDROcodone/APAP 5-325MG 1 EACH TAB PO PRN ×3 (08:32→21:31)
[2022-05-26] MEDS: FAMOTIDINE 20 MG/2 ML VIAL IV SCH (08:45)
--- NOTE | 2022-05-26 10:49 | P.PN ---
Progress Note - Text Progress Note Date: 05/26/22 Patient feels well. He apparently has been missing his medication and not taking his pills per the nursing staff. On exam vital signs appear stable. Abdomen soft. There is mild distention. Patient is having multiple bowel movements. Patient had his white count increased to 15,000. Patient will be observed. He'll placed on IV antibiotic.
[2022-05-26] MEDS: SODIUM CHLORIDE 0.9% 1,000 ML IV SCH ×2 (12:13→15:39)
[2022-05-26] MEDS: PIPERACILLIN-TAZOBACTAM 3.375 GM in SODIUM CHLORIDE 0.9% 100 ML IVPB SCH ×2 (13:04→20:07)
--- NOTE | 2022-05-26 14:02 | P.CONS ---
History of Present Illness - Reason for Consult Consult date: 05/26/22 Leukocytosis Requesting physician: Jose Culver - Chief Complaint Abdominal pain x few days - History of Present Illness Patient is a 56-year-old male with a past medical history significant for alcoholic cirrhosis of the liver, patient also noticed to have a colon polyps for the patient was electively admitted to the hospital on 05/21/2022 in this patient who is status post subtotal colectomy partial pneumonectomy small bowel resection and excision of Meckel's diverticulum, the patient has been in the hospital recovering from his surgery since then, the patient was afebrile on admission to the hospital and the patient remains to be febrile with no fever during this hospital stay the patient did have a normal white count of 8000 on admission white count was up to 15.84 on 05/23/2022 subsequently came down but has been trending up and is up to 15.8 thousand today that has prompted this infectious disease consultation, patient also noticed to have drop in hemoglobin to 6.7 on 05/22/2022 however his hemoglobin is up to 10.3 today, patient also noticed to have elevated BUN and creatinine the BUN of 26 creatinine is up to 2.0 today, patient was started on Zosyn and infectious disease was consulted for further management of antibiotic therapy. On today's evaluation that is a 05/26/2022, the patient denies having any fever or any chills. Denies having any headache or URI symptoms no chest pain shortness of breath or cough patient abdominal pain is currently controlled denies having any nausea vomiting did have a bowel movement midline incision is currently covered with Prevana postop wound VAC Review of Systems Positive point has been mentioned in the HPI rest of the systems are negative Past Medical History Past Medical History: Liver Disease, Osteoarthritis (OA), Skin Disorder Additional Past Medical History / Comment(s): Alcohol cirrhosis, liver mass, hx alcohol abuse(quit 09/2021), hx ascites, resolved, Psorasis. History of Any Multi-Drug Resistant Organisms: None Reported Past Surgical History: No Surgical Hx Reported Additional Past Surgical History / Comment(s): Colonoscopy. Past Anesthesia/Blood Transfusion Reactions: No Reported Reaction Additional Past Anesthesia/Blood Transfusion Reaction / Comm: Has never had general anesthesia. Past Psychological History: No Psychological Hx Reported Smoking Status: Former smoker Past Alcohol Use History: Abuse Additional Past Alcohol Use History / Comment(s): Quit smoking 09/2021, had smoked since age 17, was a some day smoker. Quit drinking 09/2021. Past Drug Use History: None Reported - Past Family History Father History Unknown: Yes Mother Family Medical History: Cancer Medications and Allergies Home Medications Medication Instructions Recorded Confirmed Type Spironolactone 100 mg PO BID 12/06/21 05/21/22 History Furosemide [Lasix] 40 mg PO BID 05/17/22 05/21/22 History Amoxic-Pot Clav 875-125Mg 1 tab PO Q12HR 10 Days #20 tab 05/29/22 Rx [Augmentin 875-125] HYDROcodone/APAP 5-325MG [[place] 1 tab PO Q6HR PRN 3 Days #12 tab 05/29/22 Rx 5-325] Allergies Allergy/AdvReac Type Severity Reaction Status Date / Time No Known Allergies Allergy Verified 05/21/22 09:17 Physical Exam Vitals: Vital Signs Temp Pulse Resp BP BP Pulse Ox 05/26/22 08:19 98 05/26/22 08:00 97.4 F L 99 16 121/82 97 05/26/22 02:00 97.9 F 111 H 16 112/83 97 05/25/22 22:32 126/78 05/25/22 20:00 99.0 F 100 16 110/75 96 05/25/22 14:21 98.2 F 90 16 118/75 99 Intake and Output 05/25/22 05/26/22 05/26/22 22:59 06:59 14:59 Output Total 350 Balance -350 Output: Urine 350 Other: Voiding Method Toilet # Voids 800 # Bowel Movements 4 1 GENERAL DESCRIPTION: Middle-aged male lying in bed, no distress. No tachypnea or accessory muscle of respiration use. HEENT: Shows Pallor , no scleral icterus. Oral mucous membrane is dry. No pharyngeal erythema or thrush NECK: Trachea central, no thyromegaly. LUNGS: Unlabored breathing. Clear to auscultation anteriorly. No wheeze or crackle. HEART: S1, S2, regular rate and rhythm. No loud murmur ABDOMEN: Soft, midline abdominal incision is intact mild distention no significant tenderness EXTREMITIES: No edema of feet. SKIN: No rash, no masses palpable. NEUROLOGICAL: The patient is awake, alert, oriented x3, mood and affect normal. Results CBC & Chem 7: 05/29/22 04:26 05/28/22 11:12 Labs: Abnormal Lab Results - Last 24 Hours (Table) 05/26/22 05/26/22 Range/Units 06:41 06:41 WBC 15.8 H (3.8-10.6) k/uL Hgb 10.3 L (13.0-17.5) gm/dL Hct 33.0 L (39.0-53.0) % MCV 76.6 L (80.0-100.0) fL MCH 23.8 L (25.0-35.0) pg RDW 19.3 H (11.5-15.5) % Plt Count 472 H (150-450) k/uL Neutrophils # 13.6 H (1.3-7.7) k/uL Lymphocytes # 0.9 L (1.0-4.8) k/uL Sodium 130 L (137-145) mmol/L Chloride 95 L (98-107) mmol/L Carbon Dioxide 19 L (22-30) mmol/L BUN 26 H (9-20) mg/dL Creatinine 2.00 H (0.66-1.25) mg/dL Glucose 119 H (74-99) mg/dL Assessment and Plan (1) Leukocytosis Status: Acute Code(s): D72.829 - ELEVATED WHITE BLOOD CELL COUNT, UNSPECIFIED SNOMED Code(s): 019734366 Plan: 1patient with elevated white count in this patient electively admitted to the hospital patient to have a history of alcohol cirrhosis of the liver and did have colonic polyps requiring subtotal colectomy partial omentectomy, resection of portion of small bowel and medical diverticulum now with evidence of white count which is up to 15.8 today however the patient is not febrile and does not look toxic patient also noticed to have worsening of his BUN and creatinine with a question of possible dehydration and hemoconcentration and factitious elevation of his white count was chills reactive to recent drop in his hemoglobin post surgery. 2we will obtain blood cultures CRP and a pro-calcitonin 3patient was started on IV fluid advised to hold his Lasix. 4continue with the Zosyn while awaiting further workup to be completed We will follow on clinical condition and cultures to further adjust medication if needed Thank you for this consultation will follow this patient with you Time with Patient: Greater than 30
[2022-05-26] MEDS ORDERED: SODIUM CHLORIDE 0.9% 500 ML 500 ML IV ONE (14:31)
--- NOTE | 2022-05-26 18:08 | PN ---
PROGRESS NOTE DATE OF SERVICE: 05/26/2022 CHIEF COMPLAINT: Status post right hemicolectomy. HISTORY OF PRESENT ILLNESS: This gentleman is doing fairly well, but his white count has elevated slightly. He has not had any fever or chills. PHYSICAL EXAMINATION: CHEST: Clear. CARDIAC: Normal. ABDOMEN: Soft and nontender. IMPRESSION: 1. Status post right hemicolectomy. 2. Hypotension. PLAN: Fluid bolus followed by increase in his IV rate and continue to monitor his vital signs and white blood cell count. MMODL / IJN: [id number] /
[2022-05-27] MEDS: SODIUM CHLORIDE 0.9% 1,000 ML IV SCH ×4 (02:21→21:59)
[2022-05-27] MEDS: PIPERACILLIN-TAZOBACTAM 3.375 GM in SODIUM CHLORIDE 0.9% 100 ML IVPB SCH ×3 (03:39→19:36)
[2022-05-27] MEDS: SIMETHICONE 40 MG/0.6 ML DROPS 2,000 MG/30 ML BOTTLE PO SCH ×4 (09:41→20:55)
[2022-05-27] MEDS: HEPARIN SODIUM,PORCINE/PF 5,000 UNIT/0.5 ML SYRINGE SQ SCH ×3 (09:41→23:46)
[2022-05-27] MEDS: SPIRONOLACTONE 25 MG TAB PO SCH ×2 (09:48→20:54)
[2022-05-27] MEDS: FAMOTIDINE 20 MG/2 ML VIAL IV SCH (09:48)
[2022-05-27 10:34] LABS: Anisocytosis Slight; Basophils % (A) 0 %; Eosinophils # (A) 0.1 k/uL (0-0.7); Eosinophils % (A) 0 %; HCT 32.9 % (39.0-53.0); HGB 9.8 gm/dL (13.0-17.5); Hypochromasia Moderate; Lymphocytes # (A) 1.3 k/uL (1.0-4.8); Lymphocytes % (A) 8 %; MCH 23.3 pg (25.0-35.0); MCHC 29.9 g/dL (31.0-37.0); MCV 78.1 fL (80.0-100.0); Mean Platelet Volume 8.4; Microcytosis Slight; Monocytes # (A) 0.9 k/uL (0-1.0); Monocytes % (A) 6 %; Neutrophils # (A) 13.1 k/uL (1.3-7.7); Neutrophils % (A) 83 %; Platelet Count 475 k/uL (150-450); Poikilocytosis Slight; RBC 4.21 m/uL (4.30-5.90); RDW 19.1 % (11.5-15.5); WBC 15.8 k/uL (3.8-10.6)
[2022-05-27 10:52] LABS: African American GFR (CKD) 43 (>60 ml/min/1.73 sqM); Anion Gap 15 mmol/L; Blood Urea Nitrogen 45 mg/dL (9-20); Calcium 8.5 mg/dL (8.4-10.2); Carbon Dioxide 16 mmol/L (22-30); Chloride 101 mmol/L (98-107); Glucose 126 mg/dL (74-99); Non-African American GFR(CKD) 37 (>60 ml/min/1.73 sqM); Potassium 4.5 mmol/L (3.5-5.1); Sodium 132 mmol/L (137-145)
--- NOTE | 2022-05-27 11:31 | P.PN ---
Progress Note - Text Progress Note Date: 05/27/22 The patient remains stable. He has no significant complaints of pain. He's had multiple Patricia's. On exam vital signs appear stable. Abdomen is soft. White count is 15.8. His unchanged from yesterday. Patient will receive IV antibiotic. We will watch him carefully. He is encouraged to ambulate today.
--- NOTE | 2022-05-27 13:51 | P.PN ---
Subjective Progress Note Date: 05/27/22 Principal diagnosis: Leukocytosis Patient is a 56-year-old male with a past medical history significant for alcoholic cirrhosis of the liver, patient also noticed to have a colon polyps for the patient was electively admitted to the hospital on 05/21/2022 in this patient who is status post subtotal colectomy partial pneumonectomy small bowel resection and excision of Meckel's diverticulum, patient noticed to have worsening of the white count prompted this infectious disease consultation. On today's evaluation that is 05/27/2022, the patient denies having any fever or any chills, is currently breathing comfortably on room air satting about 100% no chest pain shortness of breath or cough recovering of some vague abdominal pain and also complaining of diarrhea patient is about 5 loose stools today no blood or mucus in the stool Objective - Vital Signs Vital signs: Vital Signs Temp 98.1 F 05/27/22 08:00 Pulse 90 05/27/22 08:00 Resp 17 05/27/22 08:00 BP 116/77 05/27/22 08:00 Pulse Ox 98 05/27/22 09:12 FiO2 Intake & Output 05/26/22 05/27/22 05/27/22 18:59 06:59 18:59 Output Total 0 Balance 0 Output: Urine 0 Other: Voiding Method Toilet Toilet Toilet # Voids 5 # Bowel Movements 5 - Exam GENERAL DESCRIPTION: Middle-aged male lying in bed in no distress RESPIRATORY SYSTEM: Unlabored breathing , decreased breath sounds at bases HEART: S1 S2 regular rate and rhythm , ABDOMEN: Soft , mild distention and tenderness EXTREMITIES: No edema feet - Labs CBC & Chem 7: 05/27/22 10:24 05/27/22 10:24 Labs: Abnormal Lab Results - Last 24 Hours (Table) 05/26/22 05/26/22 05/27/22 Range/Units 12:17 12:17 10:24 WBC 15.8 H (3.8-10.6) k/uL RBC 4.21 L (4.30-5.90) m/uL Hgb 9.8 L (13.0-17.5) gm/dL Hct 32.9 L (39.0-53.0) % MCV 78.1 L (80.0-100.0) fL MCH 23.3 L (25.0-35.0) pg MCHC 29.9 L (31.0-37.0) g/dL RDW 19.1 H (11.5-15.5) % Plt Count 475 H (150-450) k/uL Neutrophils # 13.1 H (1.3-7.7) k/uL Sodium (137-145) mmol/L Carbon Dioxide (22-30) mmol/L BUN (9-20) mg/dL Creatinine (0.66-1.25) mg/dL Glucose (74-99) mg/dL C-Reactive Protein 14.2 H (<1.0) mg/dL Procalcitonin 2.04 H (0.02-0.09) ng/mL 05/27/22 Range/Units 10:24 WBC (3.8-10.6) k/uL RBC (4.30-5.90) m/uL Hgb (13.0-17.5) gm/dL Hct (39.0-53.0) % MCV (80.0-100.0) fL MCH (25.0-35.0) pg MCHC (31.0-37.0) g/dL RDW (11.5-15.5) % Plt Count (150-450) k/uL Neutrophils # (1.3-7.7) k/uL Sodium 132 L (137-145) mmol/L Carbon Dioxide 16 L (22-30) mmol/L BUN 45 H (9-20) mg/dL Creatinine 1.97 H (0.66-1.25) mg/dL Glucose 126 H (74-99) mg/dL C-Reactive Protein (<1.0) mg/dL Procalcitonin (0.02-0.09) ng/mL Assessment and Plan (1) Leukocytosis Current Visit: Yes Status: Acute Code(s): D72.829 - ELEVATED WHITE BLOOD CELL COUNT, UNSPECIFIED SNOMED Code(s): 934475098 Plan: 1patient with elevated white count in this patient electively admitted to the hospital patient to have a history of alcohol cirrhosis of the liver and did have colonic polyps requiring subtotal colectomy partial omentectomy, resection of portion of small bowel and medical diverticulum now with evidence of white count which is up to 15.8 today however the patient is not febrile and does not look toxic patient also noticed to have worsening of his BUN and creatinine with a question of possible dehydration and hemoconcentration and factitious elevation of his white count was chills reactive to recent drop in his hemoglobin post surgery. 2blood cultures are currently pending patient did have mildly elevated CRP and a pro-calcitonin 3 with the patient complaining of diarrhea we will check a stool for C. diff and treat if positive continue with the Zosyn at this point Time with Patient: Less than 30
[2022-05-27] MEDS: HYDROcodone/APAP 5-325MG 1 EACH TAB PO PRN (15:57)
[2022-05-28] MEDS: SODIUM CHLORIDE 0.9% 1,000 ML IV SCH ×3 (04:22→18:07)
[2022-05-28] MEDS: PIPERACILLIN-TAZOBACTAM 3.375 GM in SODIUM CHLORIDE 0.9% 100 ML IVPB SCH ×3 (04:23→20:30)
[2022-05-28] MEDS: HEPARIN SODIUM,PORCINE/PF 5,000 UNIT/0.5 ML SYRINGE SQ SCH ×2 (07:38→15:37)
[2022-05-28] MEDS: SIMETHICONE 40 MG/0.6 ML DROPS 2,000 MG/30 ML BOTTLE PO SCH ×4 (07:38→20:31)
[2022-05-28] MEDS: FAMOTIDINE 20 MG/2 ML VIAL IV SCH (07:44)
[2022-05-28] MEDS: SPIRONOLACTONE 25 MG TAB PO SCH ×2 (07:44→20:30)
[2022-05-28] MEDS: HYDROcodone/APAP 5-325MG 1 EACH TAB PO PRN (11:16)
[2022-05-28 11:32] LABS: Anisocytosis Slight; Basophils % (A) 0 %; Eosinophils # (A) 0.2 k/uL (0-0.7); Eosinophils % (A) 1 %; HCT 30.5 % (39.0-53.0); HGB 9.2 gm/dL (13.0-17.5); Hypochromasia Marked; Lymphocytes # (A) 1.1 k/uL (1.0-4.8); Lymphocytes % (A) 8 %; MCH 23.6 pg (25.0-35.0); MCHC 30.2 g/dL (31.0-37.0); Mean Platelet Volume 8.4; Microcytosis Slight; Monocytes # (A) 0.7 k/uL (0-1.0); Monocytes % (A) 5 %; Neutrophils # (A) 12.3 k/uL (1.3-7.7); Neutrophils % (A) 85 %; Platelet Count 435 k/uL (150-450); Poikilocytosis Slight; RBC 3.92 m/uL (4.30-5.90); RDW 18.4 % (11.5-15.5); WBC 14.5 k/uL (3.8-10.6)
[2022-05-28 12:04] LABS: African American GFR (CKD) 52 (>60 ml/min/1.73 sqM); Anion Gap 13 mmol/L; Blood Urea Nitrogen 50 mg/dL (9-20); Calcium 8.9 mg/dL (8.4-10.2); Carbon Dioxide 14 mmol/L (22-30); Chloride 104 mmol/L (98-107); Glucose 118 mg/dL (74-99); Non-African American GFR(CKD) 45 (>60 ml/min/1.73 sqM); Potassium 4.6 mmol/L (3.5-5.1); Sodium 131 mmol/L (137-145)
--- NOTE | 2022-05-28 12:26 | P.PN ---
Subjective Progress Note Date: 05/28/22 Principal diagnosis: Leukocytosis Patient is a 56-year-old male with a past medical history significant for alcoholic cirrhosis of the liver, patient also noticed to have a colon polyps for the patient was electively admitted to the hospital on 05/21/2022 in this patient who is status post subtotal colectomy partial pneumonectomy small bowel resection and excision of Meckel's diverticulum, patient noticed to have worsening of the white count prompted this infectious disease consultation. On today's evaluation that is 05/28/2022, the patient remains to be afebrile, the patient is breathing comfortably on room air, however the nursing staff has reported some cough but no sputum production no chest pain or abdominal pain is currently controlled no nausea no vomiting and no worsening diarrhea Objective - Vital Signs Vital signs: Vital Signs Temp 97.7 F 05/28/22 07:12 Pulse 85 05/28/22 07:12 Resp 18 05/28/22 07:12 BP 107/69 05/28/22 07:12 Pulse Ox 100 05/28/22 07:12 FiO2 Intake & Output 05/27/22 05/28/22 05/28/22 18:59 06:59 18:59 Output Total 2 Balance -2 Output: Stool 2 Other: Voiding Method Toilet Toilet Toilet Urinal Incontinent # Voids 6 3 - Exam GENERAL DESCRIPTION: Middle-aged male lying in bed in no distress RESPIRATORY SYSTEM: Unlabored breathing , decreased breath sounds at bases HEART: S1 S2 regular rate and rhythm , ABDOMEN: Soft , mild distention and tenderness EXTREMITIES: No edema feet - Labs CBC & Chem 7: 05/28/22 11:12 05/28/22 11:12 Labs: Abnormal Lab Results - Last 24 Hours (Table) 05/27/22 Range/Units 10:24 Sodium 132 L (137-145) mmol/L Carbon Dioxide 16 L (22-30) mmol/L BUN 45 H (9-20) mg/dL Creatinine 1.97 H (0.66-1.25) mg/dL Glucose 126 H (74-99) mg/dL Microbiology - Last 24 Hours (Table) 05/26/22 12:17 Blood Culture - Preliminary Blood No Growth after 24 hours Assessment and Plan (1) Leukocytosis Current Visit: Yes Status: Acute Code(s): D72.829 - ELEVATED WHITE BLOOD CELL COUNT, UNSPECIFIED SNOMED Code(s): 375519816 Plan: 1patient with elevated white count in this patient electively admitted to the hospital patient to have a history of alcohol cirrhosis of the liver and did have colonic polyps requiring subtotal colectomy partial omentectomy, resection of portion of small bowel and medical diverticulum now with evidence of white count which is up to 15.8 today however the patient is not febrile and does not look toxic patient also noticed to have worsening of his BUN and creatinine with a question of possible dehydration and hemoconcentration and factitious elevation of his white count was chills reactive to recent drop in his hemoglobin post surgery. 2blood cultures are so far negative, patient did have mildly elevated CRP and a pro-calcitonin 3 stool for C. diff came back negative 4white count is slightly trending down about 14.5 and will continue with the Zosyn, obtain a chest x-ray to complete the workup Time with Patient: Less than 30
[2022-05-28 14:03] VITALS: BMI 26.0
--- NOTE | 2022-05-28 14:41 | XR ---
EXAMINATION TYPE: XR chest 2V DATE OF EXAM: 05/28/2022 2:23 PM COMPARISON: None TECHNIQUE: XR chest 2V Frontal and lateral views of the chest. CLINICAL INDICATION:Male, 56 years old with history of Pneumonia; FINDINGS: Lungs/Pleura: There is no evidence of pleural effusion, focal consolidation, or pneumothorax. Pulmonary vascularity: Unremarkable. Heart/mediastinum: Cardiomediastinal silhouette is unremarkable. Musculoskeletal: No acute osseous pathology. Other findings: There is free air under right hemidiaphragm. IMPRESSION: Free air under the right hemidiaphragm. Correlation with any recent surgical intervention is recommen ded otherwise consider CT abdomen and pelvis. No focal consolidation or pneumothorax. Findings called to and discussed with Dr. Barahona at 2:36 PM on 05/28/2022.
[2022-05-28 15:39] LABS: Appearance,Urine Turbid (Clear); Bilirubin,Urine Negative (Negative); Blood,Urine Negative (Negative); Budding Yeast,Urine Occasional /hpf; Color,Urine Yellow; Glucose,Urine (UA) Negative (Negative); Ketones,Urine Negative (Negative); Leukocyte Esterase,Urine Negative (Negative); Mucus,Urine Rare /hpf; Nitrite,Urine Negative (Negative); PH, Urine 5.5 (5.0-8.0); Protein,Urine 1+ (Negative); RBC,Urine <1 /hpf (0-5); Specific Gravity,Urine 1.031 (1.001-1.035); Squamous Epithelial Cell,Urine 1 /hpf (0-4); Urobilinogen,Urine <2.0 mg/dL (<2.0); WBC,Urine 3 /hpf (0-5)
[2022-05-28] MEDS: CALCIUM CARBONATE 500 MG CHEWABLE PO PRN ×2 (18:34→21:14)
--- NOTE | 2022-05-28 18:48 | P.PN ---
Progress Note - Text Progress Note Date: 05/28/22 Patient states he feels better. He wants to go home. On exam vital signs are stable. Abdomen soft. Incisions clean dry intact. Status post subtotal colectomy. Patient's white count is decreased slightly 14.5. The patient is improving. Weight is a discharge home the next 48 hours.
--- NOTE | 2022-05-28 20:55 | PN ---
PROGRESS NOTE DATE OF SERVICE: 05/28/2022 CHIEF COMPLAINT: Status post right hemicolectomy. HISTORY OF PRESENT ILLNESS: This gentleman is doing fairly well. His white count has been slightly elevated and this is being followed. He denies any chest pain, shortness of breath, abdominal pain, difficulty urinating, etc. PHYSICAL EXAMINATION: ABDOMEN: Still quite distended. Bowel sounds are present. CHEST: Clear. CARDIAC: Normal. IMPRESSION: 1. Elevated white count. 2. Status post right colectomy. PLAN: Continue to follow with Surgery. White count will be monitored. MMODL / IJN: [id number] /
[2022-05-29] MEDS: HEPARIN SODIUM,PORCINE/PF 5,000 UNIT/0.5 ML SYRINGE SQ SCH ×2 (00:19→09:29)
[2022-05-29] MEDS: SODIUM CHLORIDE 0.9% 1,000 ML IV SCH ×2 (00:32→06:31)
[2022-05-29] MEDS: PIPERACILLIN-TAZOBACTAM 3.375 GM in SODIUM CHLORIDE 0.9% 100 ML IVPB SCH ×2 (03:42→12:17)
[2022-05-29 04:57] LABS: Anisocytosis Slight; Basophils % (A) 0 %; Eosinophils # (A) 0.3 k/uL (0-0.7); Eosinophils % (A) 2 %; HCT 31.1 % (39.0-53.0); HGB 9.4 gm/dL (13.0-17.5); Hypochromasia Marked; Lymphocytes # (A) 1.2 k/uL (1.0-4.8); Lymphocytes % (A) 8 %; MCH 23.2 pg (25.0-35.0); MCHC 30.1 g/dL (31.0-37.0); MCV 77.1 fL (80.0-100.0); Mean Platelet Volume 7.7; Microcytosis Slight; Monocytes # (A) 0.7 k/uL (0-1.0); Monocytes % (A) 5 %; Neutrophils # (A) 11.5 k/uL (1.3-7.7); Neutrophils % (A) 83 %; Platelet Count 483 k/uL (150-450); Poikilocytosis Slight; RBC 4.03 m/uL (4.30-5.90); RDW 18.2 % (11.5-15.5); WBC 13.9 k/uL (3.8-10.6)
[2022-05-29] MEDS: SPIRONOLACTONE 25 MG TAB PO SCH (09:29)
[2022-05-29] MEDS: FAMOTIDINE 20 MG/2 ML VIAL IV SCH (09:30)
[2022-05-29] MEDS: SIMETHICONE 40 MG/0.6 ML DROPS 2,000 MG/30 ML BOTTLE PO SCH ×2 (09:30→12:16)
[2022-05-29] MEDS: CALCIUM CARBONATE 500 MG CHEWABLE PO PRN (09:32)
--- NOTE | 2022-05-29 13:20 | P.DS ---
Providers Date of admission: 05/21/22 08:59 Expected date of discharge: 05/29/22 Attending physician: Jose Culver Consults: 05/21/22 14:01 Consult Physician Routine Consulting Provider: Froilan Suarez Consult Reason/Comments: med manage Do you want consulting provider notified?: Yes 05/26/22 10:50 Consult Physician Routine Consulting Provider: Radha Alatorre Consult Reason/Comments: Leukocytosis Do you want consulting provider notified?: Yes Primary care physician: Froilan Suarez Hospital Course: Discharge diagnosis 1. Colon polyps status post subtotal colectomy, partial omentectomy, small bowel resection and excision of Meckel's. 2. Hyperkalemia improved 3. Anemia 4. Hyponatremia stable 5. History of liver cirrhosis Hospital course This is a 56-year-old male known history of colon status post subtotal colectomy, partial omentectomy, small bowel resection and excision of Meckel's. Patient's pain is controlled. She is tolerating diet. He is having bowel movements. He is afebrile. He has been up and ambulating. Incision is clean dry and intact. Patient is stable for discharge. Please refer to chart for any further details. Physician Superintendent Nonselling note has been reviewed by physician. Signing provider agrees with the documented findings, assessment, and plan of care. Patient Condition at Discharge: Stable Plan - Discharge Summary Discharge Rx Participant: No New Discharge Prescriptions: New Amoxic-Pot Clav 875-125Mg [Augmentin 875-125] 1 tab PO Q12HR 10 Days #20 tab HYDROcodone/APAP 5-325MG [[place] 5-325] 1 tab PO Q6HR PRN 3 Days #12 tab PRN Reason: Pain Continue Spironolactone 100 mg PO BID Furosemide [Lasix] 40 mg PO BID Discharge Medication List Spironolactone 100 mg PO BID 12/06/21 [History] Furosemide [Lasix] 40 mg PO BID 05/17/22 [History] Amoxic-Pot Clav 875-125Mg [Augmentin 875-125] 1 tab PO Q12HR 10 Days #20 tab 05/29/22 [Rx] HYDROcodone/APAP 5-325MG [[place] 5-325] 1 tab PO Q6HR PRN 3 Days #12 tab 05/29/22 [Rx] Follow up Appointment(s)/Referral(s): Jose Culver MD [STAFF PHYSICIAN] - 1 Week Activity/Diet/Wound Care/Special Instructions: No driving while taking [place] No lifting over 10 pounds Shower daily. No soaking or tub baths for 2 weeks Very light activity until you are reevaluated at your follow up appointment with your surgeon Discharge Disposition: HOME SELF-CARE
[2022-05-29] MEDS: HYDROcodone/APAP 5-325MG 1 EACH TAB PO PRN (14:00)
[2022-05-29 14:48] VITALS: BP 117/78; PULSE 90; RESP 17; TEMP 98.4
--- NOTE | 2022-05-29 16:35 | P.OP ---
Date of Procedure: 05/21/22 Preoperative Diagnosis: Colonic polyps Postoperative Diagnosis: Colonic polyps Small bowel mesenteric mass Meckel's diverticulum Procedure(s) Performed: subtotal colectomy Partial omentectomy Small bowel resection Meckel's diverticulum excision Anesthesia: KATYA Surgeon: Jose Culver Estimated Blood Loss (ml): 100 Pathology: other (colon, omentum, small bowel, Meckel's diverticulum) Condition: stable Disposition: PACU Description of Procedure: the patient was placed on the operative table in the supine position. He received general endotracheal anesthesia. general endotracheal anesthesia. and draped in the usual sterile fashion. The abdomen was entered through a midline incision. Upon entering the pleural cavity there is a small amount of ascites. The patient had been previously tattooed at the time of colonoscopy. The tattoo ink olivas were seen in the colon in the area of the right colon the transverse colon and the descending colon. the small bowel was run. It in the distal jejunum area there was a mesenteric mass noted. In the ileum there was noted to be a Meckel's diverticulum. The terminal ileum was then transected. Then the white line of Toldt was divided and the right colon was mobilized. The hepatic flexure was taken down with electrocautery. And then the transverse colon was mobilized by dividing the omentum off of the transverse mesocolon. The left colon was then mobilized by dividing the white line of Toldt's. And then the splenic flexure was mobilized using electrocautery. Once the colon was freely mobilized. The colon was transected With the ASTER staplerdistal to the last tattooed yoana on the colon. This was near the rectosigmoid. The terminal ileum was transected with a ASTER stapler. using the Enseal device the mesentery of the colon was divided. The specimen was then sent to pathology. The small bowel mesenteric mass was then examined. A segmental small bowel resection at the area of the mass was then performed by dividing the jejunum proximally distally with a ASTER stapler. Then using the Enseal device to divide the mesentery. The specimen sent to pathology. The Meckel's diverticulum was examined. The Meckel's diverticulum was then divided using the TA stapler. And then the specimens of the pathology. The small bowel anastomosis was performed first. Using a ASTER and TA stapler the small bowel was anastomosed in a [id number] functional end-to-end stapled anastomosis. A 3 obvious silk suture was used as a crotch stitch. Next the ileocolonic anastomosis created using a ASTER and TA stapler in a Side to sidefunctional end-to-end staple anastomosis. a 3 oh-0 GI silk sutures using a crotch stitch. The omentum was examined. A portion of the event appeared to be nonviable.The omentum was examined. A portion of the event appeared to be nonviable. divided with the Enseal device and sent to pathology. The abdomen is irrigated. There is no bleeding seen. The fascia was closed with looped #1 PDS suture. Skin was closed with almita. Patient taught procedure well sent to recovery room in stable condition.
--- NOTE | 2022-05-29 20:55 | PN ---
PROGRESS NOTE DATE OF SERVICE: 05/25/2022 CHIEF COMPLAINT: Status post right colectomy. HISTORY OF PRESENT ILLNESS: Gentleman is doing fairly well. His pain is under good control. He is still not eating or drinking. PHYSICAL EXAMINATION: GENERAL: He is awake and alert. SKIN: Color is good. VITAL SIGNS: Normal. CHEST: Clear. CARDIAC: Normal. ABDOMEN: Distended, but soft. IMPRESSION: Status post right colectomy. PLAN: Continue to follow with Surgery. He is doing well, and he has no medical issues at this time. MMODL / IJN: [id number] /
--- NOTE | 2022-05-29 21:04 | PN ---
PROGRESS NOTE DATE OF SERVICE: 05/29/2022 CHIEF COMPLAINT: Status post right hemicolectomy. HISTORY OF PRESENT ILLNESS: This gentleman seems to be doing fairly well. It is not clear when he will be able to be discharged. PHYSICAL EXAMINATION: VITAL SIGNS: He is afebrile. CHEST: Clear. CARDIAC: Normal. ABDOMEN: Still protuberant. There are no definite masses. Bowel sounds are present. IMPRESSION: Status post right hemicolectomy. PLAN: No change in program and await guidelines from Surgery regarding his discharge. MMODL / IJN: [id number] /
--- NOTE | 2022-05-29 21:16 | PN ---
PROGRESS NOTE DATE OF SERVICE: 05/27/2022 CHIEF COMPLAINT: Status post right colectomy. HISTORY OF PRESENT ILLNESS: This gentleman seems to be coming along fairly well. His white blood cell count was elevated, yet it started to trend down slightly. He has had no fever, chills, chest pain, shortness of breath, abdominal pain, urinary complaints, etc. PHYSICAL EXAMINATION: CHEST: Clear. CARDIAC: Normal. ABDOMEN: Remains slightly distended and tympanitic. PLAN: No change in program and follow with Surgery until he can be discharged. MMODL / IJN: [id number] /
--- NOTE | 2022-05-30 23:14 | PN ---
PROGRESS NOTE DATE OF SERVICE: 05/24/2022 CHIEF COMPLAINT: Status post right colectomy. HISTORY OF PRESENT ILLNESS: This gentleman is doing fairly well. His pain is under good control. He has had no confusion. He has had no shortness of breath, fever, chills, chest pain, etc. PHYSICAL EXAMINATION: LUNGS: Breath sounds are clear. CARDIAC: Normal. ABDOMEN: Remains slightly protuberant. EXTREMITIES: Normal. IMPRESSION: Status post right hemicolectomy. PLAN: Continue to follow with Surgery. At the present time, he exhibits no medical problems. MMODL / IJN: [id number] /
--- NOTE | 2022-06-01 22:21 | P.PN ---
Subjective Progress Note Date: 05/29/22 Principal diagnosis: Leukocytosis Patient is a 56-year-old male with a past medical history significant for alcoholic cirrhosis of the liver, patient also noticed to have a colon polyps for the patient was electively admitted to the hospital on 05/21/2022 in this patient who is status post subtotal colectomy partial pneumonectomy small bowel resection and excision of Meckel's diverticulum, patient noticed to have worsening of the white count prompted this infectious disease consultation. On today's evaluation that is 05/29/2022, the patient continues to be afebrile, the patient is breathing comfortably on room air, patient did have occasional cough but no sputum production no chest pain or abdominal pain is currently controlled no nausea no vomiting and no worsening diarrhea Objective - Vital Signs Vital signs: Vital Signs Temp 97.7 F 05/29/22 07:31 Pulse 83 05/29/22 07:31 Resp 16 05/29/22 07:31 BP 116/71 05/29/22 07:31 Pulse Ox 97 05/29/22 07:31 FiO2 Intake & Output 05/28/22 05/29/22 05/29/22 18:59 06:59 18:59 Output Total 200 Balance -200 Weight 84.7 kg Output: Urine 200 Other: Voiding Method Toilet Toilet Urinal Incontinent - Exam GENERAL DESCRIPTION: Middle-aged male lying in bed in no distress RESPIRATORY SYSTEM: Unlabored breathing , decreased breath sounds at bases HEART: S1 S2 regular rate and rhythm , ABDOMEN: Soft , mild distention and tenderness EXTREMITIES: No edema feet - Labs CBC & Chem 7: 05/29/22 04:26 05/28/22 11:12 Labs: Abnormal Lab Results - Last 24 Hours (Table) 05/28/22 05/28/22 05/28/22 Range/Units 11:12 11:12 15:25 WBC 14.5 H (3.8-10.6) k/uL RBC 3.92 L (4.30-5.90) m/uL Hgb 9.2 L (13.0-17.5) gm/dL Hct 30.5 L (39.0-53.0) % MCV 78.0 L (80.0-100.0) fL MCH 23.6 L (25.0-35.0) pg MCHC 30.2 L (31.0-37.0) g/dL RDW 18.4 H (11.5-15.5) % Plt Count (150-450) k/uL Neutrophils # 12.3 H (1.3-7.7) k/uL Sodium 131 L (137-145) mmol/L Carbon Dioxide 14 L (22-30) mmol/L BUN 50 H (9-20) mg/dL Creatinine 1.66 H (0.66-1.25) mg/dL Glucose 118 H (74-99) mg/dL Urine Protein 1+ H (Negative) Urine Mucus Rare H (None) /hpf Urine Yeast (Budding) Occasional H (None) /hpf 05/29/22 Range/Units 04:26 WBC 13.9 H (3.8-10.6) k/uL RBC 4.03 L (4.30-5.90) m/uL Hgb 9.4 L (13.0-17.5) gm/dL Hct 31.1 L (39.0-53.0) % MCV 77.1 L (80.0-100.0) fL MCH 23.2 L (25.0-35.0) pg MCHC 30.1 L (31.0-37.0) g/dL RDW 18.2 H (11.5-15.5) % Plt Count 483 H (150-450) k/uL Neutrophils # 11.5 H (1.3-7.7) k/uL Sodium (137-145) mmol/L Carbon Dioxide (22-30) mmol/L BUN (9-20) mg/dL Creatinine (0.66-1.25) mg/dL Glucose (74-99) mg/dL Urine Protein (Negative) Urine Mucus (None) /hpf Urine Yeast (Budding) (None) /hpf Microbiology - Last 24 Hours (Table) 05/26/22 12:17 Blood Culture - Preliminary Blood No Growth after 48 hours Assessment and Plan (1) Leukocytosis Status: Acute Code(s): D72.829 - ELEVATED WHITE BLOOD CELL COUNT, UNSPECIFIED SNOMED Code(s): 789076258 Plan: 1patient with elevated white count in this patient electively admitted to the hospital patient to have a history of alcohol cirrhosis of the liver and did have colonic polyps requiring subtotal colectomy partial omentectomy, resection of portion of small bowel and medical diverticulum now with evidence of white count which is up to 15.8 today however the patient is not febrile and does not look toxic patient also noticed to have worsening of his BUN and creatinine with a question of possible dehydration and hemoconcentration and factitious elevation of his white count was chills reactive to recent drop in his hemoglobi n post surgery. 2blood cultures are so far negative, patient did have mildly elevated CRP and a pro-calcitonin 3 stool for C. diff came back negative 4patient chest x-ray did shows air under the diaphram that has been discussed with the surgeon by the radiologist and apparently attributed to his recent surgery evacuation white count is trending downward he will continue with the Zosyn and monitor clinical course closely Time with Patient: Less than 30
== END 2022-05-29 15:35 | disposition home or self-care (01) | DRG 230 ==
LOC: 2ORMAIN 05-21 08:59 → 4SSUR 05-21 16:28
PROVIDERS: ADMIT Surgery; ATTEND Surgery
PROC: 3E0R3BZ Introduction of Anesthetic Agent into Spinal Canal, Percutaneous Approach (ICD-10-PCS; 2022-05-21)
PROC: 00HU33Z Insertion of Infusion Device into Spinal Canal, Percutaneous Approach (ICD-10-PCS; 2022-05-21)
PROC: 0DTL0ZZ Resection of Transverse Colon, Open Approach (ICD-10-PCS; principal; 2022-05-29)
PROC: 0DT80ZZ Resection of Small Intestine, Open Approach (ICD-10-PCS; 2022-05-29)
PROC: 0DBU0ZZ Excision of Omentum, Open Approach (ICD-10-PCS; 2022-05-29)
DX: D12.6 Benign neoplasm of colon, unspecified (principal); E87.1 Hypo-osmolality and hyponatremia; K70.31 Alcoholic cirrhosis of liver with ascites; D63.8 Anemia in other chronic diseases classified elsewhere; I95.9 Hypotension, unspecified; E86.0 Dehydration; F10.21 Alcohol dependence, in remission; Q43.0 Meckel's diverticulum (displaced) (hypertrophic); D72.829 Elevated white blood cell count, unspecified; E87.5 Hyperkalemia; Z87.891 Personal history of nicotine dependence; Z87.19 Personal history of other diseases of the digestive system; Z80.9 Family history of malignant neoplasm, unspecified; Z28.311 Partially vaccinated for COVID-19
CPT/HCPCS: 36430; 71046; 80048; 80051; 80053; 81001; 82040; 82565; 84145; 84520; 85025; 85027; 85610; 85730; 86140; 86850; 86900; 86901; 86920; 87040; 87324; 88305; 88307; 88309; 88321; 88341; 88342; 93005; 94760

== ENCOUNTER → 2022-05-18 | Outpatient (CLI) | payer OTHER | END | disposition home or self-care (01) | LOC: LABPAT 11:11 → EEVIPCON 11:11 | PROVIDERS: ATTEND Surgery | DX: Z53.9 Procedure and treatment not carried out, unspecified reason (principal); Z01.818 Encounter for other preprocedural examination ==